=== PATIENT | female | born 1965 | race Caucasian/White ===

== ENCOUNTER 2016-11-26 20:08 | Inpatient (IN) | payer BC ==
[~2016-11-26] VITALS: Ht 165.1 cm; Wt 66.4 kg
[2016-11-26 22:56] LABS: BASOPHIL % 0.6 % (0-2); PLATELET COUNT 231 x10^3mcL (130-400)
[2016-11-26 23:05] LABS: CALCIUM 9.4 mg/dL (8.5-10.1); CARBON DIOXIDE 24.7 mmol/L (21-32); CHLORIDE SERUM 101 mmol/L (98-107); CREATININE SERUM 0.9 mg/dL (0.6-1.0); GFR1 > 60 mL/min; GLUCOSE SERUM 101 mg/dL (74-106); SODIUM SERUM 140 mmol/L (136-145)
[2016-11-26 23:12] LABS: ALBUMIN 3.8 g/dL (3.4-5.0); ALKALINE PHOSPHATASE 79 U/L (46-116); ALT/SGPT 27 U/L (14-59); AST/SGOT 27 U/L (15-37); BILIRUBIN TOTAL 1.02 mg/dL (0.20-1.00); LIPASE 218 IU/L (73-393); TRIGLYCERIDES 155 mg/dL (<150)
[2016-11-26 23:13] LABS: CHOLESTEROL 294 mg/dL (<200); CHOLESTEROL/HDL RATIO 3.5; HDL CHOLESTEROL 85 mg/dL (40-60); TOTAL PROTEIN, SERUM 8.3 g/dL (6.4-8.2)
[2016-11-26 23:16] LABS: T3 TOTAL 1.25 ng/mL
[2016-11-26 23:33] LABS: FREE T4 0.98 ng/dL (0.76-1.46); FREE THYROXINE INDEX 3.4 ug/dL (1.4-4.5); T4(THYROXINE) 9.2 ug/dL (4.7-13.3)
[2016-11-27] MEDS ORDERED: PEPCID20 MG PO (01:35)
[2016-11-27] MEDS ORDERED: BENTYL10 MG PO (01:37)
[2016-11-27 02:24] VITALS: BP 147/98
[2016-11-27 02:41] LABS: MAGNESIUM 1.7 mg/dL (1.8-2.4); PHOSPHOROUS 4.1 mg/dL (2.5-4.9)
[2016-11-27 04:32] LABS: microscopic required? YES; urine erythrocyte TRACE (NEGATIVE)
[2016-11-27 04:39] LABS: AMPHETAMINE QUAL UR NONE DETECTED (NEG <=1000)
[2016-11-27 05:48] VITALS: BP 154/88
[2016-11-27 09:13] VITALS: BP 122/81
[2016-11-27 13:06] VITALS: BP 122/79
[2016-11-27 17:12] VITALS: BP 130/84
[2016-11-27 21:25] VITALS: BP 123/85
[2016-11-28 08:55] LABS: CALCIUM 8.4 mg/dL (8.5-10.1); CARBON DIOXIDE 27.5 mmol/L (21-32); CHLORIDE SERUM 103 mmol/L (98-107); CREATININE SERUM 0.8 mg/dL (0.6-1.0); GFR1 > 60 mL/min; MAGNESIUM 1.8 mg/dL (1.8-2.4); PHOSPHOROUS 3.1 mg/dL (2.5-4.9); POTASSIUM SERUM 3.3 mmol/L (3.5-5.1); SODIUM SERUM 139 mmol/L (136-145)
[2016-11-28 08:57] LABS: BASOPHIL % 0.2 % (0-2); PLATELET COUNT 204 x10^3mcL (130-400); RED CELL DISTRIBUTION WIDTH 13.3 % (11.5-14.5)
[2016-11-28 10:40] VITALS: BP 156/93
[2016-11-28 11:17] LABS: GLUCOSE SERUM 155 mg/dL (74-106)
[2016-11-28 14:02] VITALS: BP 147/94
[2016-11-28 15:50] VITALS: BP 157/109
[2016-11-28 17:34] VITALS: BP 156/96
[2016-11-28 20:46] VITALS: BP 165/101
[2016-11-28 22:39] VITALS: BP 144/98
[2016-11-29 05:39] VITALS: BP 149/92
[2016-11-29 06:13] LABS: BASOPHIL % 0.2 % (0-2); PLATELET COUNT 226 x10^3mcL (130-400); RED CELL DISTRIBUTION WIDTH 13.4 % (11.5-14.5)
[2016-11-29 06:31] LABS: CALCIUM 8.8 mg/dL (8.5-10.1); CARBON DIOXIDE 25.1 mmol/L (21-32); CHLORIDE SERUM 101 mmol/L (98-107); CREATININE SERUM 0.8 mg/dL (0.6-1.0); GFR1 > 60 mL/min; GLUCOSE SERUM 115 mg/dL (74-106); MAGNESIUM 2.5 mg/dL (1.8-2.4); PHOSPHOROUS 3.3 mg/dL (2.5-4.9); POTASSIUM SERUM 3.1 mmol/L (3.5-5.1); SODIUM SERUM 137 mmol/L (136-145)
[2016-11-29 09:38] VITALS: BP 118/85
[2016-11-29 13:20] VITALS: BP 94/64
[2016-11-30 06:06] VITALS: BP 95/58
[2016-11-30 09:05] VITALS: BP 97/58
[2016-11-30 10:34] LABS: BASOPHIL % 0.6 % (0-2); PLATELET COUNT 194 x10^3mcL (130-400); RED CELL DISTRIBUTION WIDTH 13.3 % (11.5-14.5)
[2016-11-30 10:59] LABS: CALCIUM 8.3 mg/dL (8.5-10.1); CHLORIDE SERUM 107 mmol/L (98-107); CREATININE SERUM 0.8 mg/dL (0.6-1.0); GFR1 > 60 mL/min; GLUCOSE SERUM 108 mg/dL (74-106); MAGNESIUM 1.8 mg/dL (1.8-2.4); PHOSPHOROUS 3.3 mg/dL (2.5-4.9); POTASSIUM SERUM 3.9 mmol/L (3.5-5.1); SODIUM SERUM 138 mmol/L (136-145)
[2016-11-30] MEDS ORDERED: LIPI10 PO (11:57)
[2016-11-30] MEDS ORDERED: COL100 PO (12:00)
[2016-11-30] MEDS ORDERED: CAR1 PO (12:00)
[2016-11-30] MEDS ORDERED: KLOR-CON M2020 MEQ PO (12:01)
[2016-11-30] MEDS ORDERED: OMEPRAZOLE20 M4 PO (12:02)
[2016-11-30 13:34] VITALS: BP 94/58
[2016-11-30 14:33] VITALS: BP 94/58
== END 2016-11-30 15:50 | disposition home or self-care (01) | DRG 384 ==
LOC: ED 20:08 → DU 11-27 00:47
PROVIDERS: Family Medicine; Internal Medicine Gastroenterology; Specialist; ADMIT Family Medicine
PROC: 0DB68ZX Excision of Stomach, Via Natural or Artificial Opening Endoscopic, Diagnostic (ICD-10-PCS; principal; 2016-11-28 14:45)
PROC: 0DBP8ZX Excision of Rectum, Via Natural or Artificial Opening Endoscopic, Diagnostic (ICD-10-PCS; 2016-11-29)
DX: K25.9 Gastric ulcer, unspecified as acute or chronic, without hemorrhage or perforation (principal); R19.03 Right lower quadrant abdominal swelling, mass and lump; D27.9 Benign neoplasm of unspecified ovary; E87.6 Hypokalemia; E83.42 Hypomagnesemia; E78.5 Hyperlipidemia, unspecified; Z90.710 Acquired absence of both cervix and uterus; Z87.891 Personal history of nicotine dependence
CPT/HCPCS: 43235; 45378; 82962; 83880; 84439; C9113; J1170; J1200; J1610; J1885; J2250; J2270; J2310; J2405; J2550; J2765; J3010; J3475; J3480; J3490; J7030; Q0092; Q0169; Q9966; Q9967